=== PATIENT | male | born 1940 | race Caucasian/White ===

== ENCOUNTER 2023-08-31 14:39 | Outpatient (CLI) | payer OTHER, MEDICAID, SELFPAY ==
--- NOTE | ~2023-08-31 | MR_ITS ---
EXAMINATION: MR lumbar spine wo/w con DATE: 08/31/2023 16:37 INDICATION: Spinal stenosis, lumbar region. TECHNIQUE: Magnetic resonance imaging (MRI) of the lumbar spine was performed without and with 16 mL MultiHance intravenous contrast. COMPARISON: Lumbar spine MRI 06/28/2019 FINDINGS: There is 7 degrees dextrocurvature of lumbar spine. There is 3 mm anterolisthesis of L3 on L4 and 3 mm retrolisthesis of L4 on L5. There is mild height loss of T12 and L1 vertebral bodies. The re is widespread sclerosis involving all bones. There is moderately decreased disc height at L2-L3 an d severely decreased disc height at L3-L4 and L4-L5. The distal spinal cord signal intensity is maliha l. The conus medullaris is at L1. There is severe bilateral hydronephrosis and hydroureter. The bladd er is distended. The following disc levels are specifically discussed: L1-L2: The disc is bulging. There is severe bilateral facet joint osteoarthritis. There is mild bilat eral neural foraminal stenosis. There is mild central canal stenosis. L2-L3: The disc is bulging. There is severe bilateral facet joint osteoarthritis. There is mild right and moderate left neural foraminal stenosis. There is mild central canal stenosis. L3-L4: The disc is bulging. There is severe bilateral facet joint osteoarthritis. There is mild right and moderate left neural foraminal stenosis. There is mild central canal stenosis. L4-L5: The disc is bulging and has an annular fissure. There is severe bilateral facet joint osteoart hritis. There is moderate bilateral neural foraminal stenosis. There is mild central canal stenosis. L5-S1: The disc is bulging. There is severe bilateral facet joint osteoarthritis. There is mild bilat eral neural foraminal stenosis. There is mild central canal stenosis. IMPRESSION: 1. Diffuse sclerosis involving all bones, new from 06/28/19, consistent with metastatic disease. 2. Severe lumbar spondylosis. 3. Severe bilateral hydronephrosis and hydroureter. Bladder distention. Reviewed, dictated and finalized at location E. NG COACH IMPRESSION: 1. Diffuse sclerosis involving all bones, new from 06/28/19, consistent with meta static disease. 2. Severe lumbar spondylosis. 3. Severe bilateral hydronephrosis and hydroureter. Bladder distention.
--- NOTE | ~2023-08-31 | MR_ITS ---
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 Prostate cancer. TECHNIQUE: Magnetic resonance imaging (MRI) of the thoracic spine was performed without and with 16 m L MultiHance intravenous contrast. COMPARISON: None FINDINGS: There is a moderate-sized left pleural effusion. There is 4 degrees levocurvature of thorac ic spine. There is mild anterior wedging of T1 and T6. There is sclerosis involving all bones, consis tent with metastatic disease. There is severely decreased disc height at T1-T2 and mildly decreased d isc height at T5-T6 and T6-T7. There is multilevel facet joint osteoarthritis, severe at many levels. There is multilevel mild neural foraminal stenosis bilaterally. On the right, there is moderate neur al foraminal stenosis at T1-T2. The discs are bulging at T1-T2 and T2-T3 with mild central canal sten osis. At T6-T7, there is a right central extrusion with mild central canal stenosis and ventral inden tation of spinal cord. At T7-T8, there is a central extrusion with mild central canal stenosis. At T1 1-T12 the disc is bulging with mild central canal stenosis. The spinal cord signal intensity is norm al. IMPRESSION: 1. Widespread sclerosis of all bones, consistent with metastatic disease. 2. Mild thoracic spondylosis. 3. Moderate-sized left pleural effusion. Reviewed, dictated and finalized at location E. AGGER
== END 2023-08-31 14:40 | disposition home or self-care (01) ==
PROVIDERS: PCP Family Medicine Sports Medicine
DX: D49.2 Neoplasm of unspecified behavior of bone, soft tissue, and skin (principal); M48.061 Spinal stenosis, lumbar region without neurogenic claudication; M43.04 Spondylolysis, thoracic region; M43.06 Spondylolysis, lumbar region; J90 Pleural effusion, not elsewhere classified; N13.4 Hydroureter; N13.30 Unspecified hydronephrosis; N32.89 Other specified disorders of bladder
CPT/HCPCS: 72157; 72158; A9577